=== PATIENT | female | born 1970 ===

== ENCOUNTER 2016-02-29 17:53 | Emergency (ER) | payer MEDICAID ==
[2016-02-29 19:00] LABS: PH,URINE 6.5 (5.0-8.0); SPECIFIC GRAVITY 1.015 (1.001-1.030); URINE BILIRUBIN NEGATIVE (NEGATIVE); URINE BLOOD 2+ (NEGATIVE); URINE GLUCOSE (UA) NEGATIVE (NEGATIVE); URINE LEUKOCYTE ESTERASE NEGATIVE (NEGATIVE); URINE NITRITE NEGATIVE (NEGATIVE); URINE PROTEIN NEGATIVE (NEGATIVE); URINE UROBILINOGEN NORMAL (0-1 mg/dl)
[2016-02-29 19:01] LABS: URINE APPEARANCE CLEAR; URINE COLOR LIGHT YELLOW
[2016-02-29 19:14] LABS: URINE BACTERIA FEW; URINE WBC 0-1 /hpf
[2016-02-29 20:53] LABS: BASO % 0.3 % (0.2-1.0); EOS % 0.5 % (0.9-2.9); HEMATOCRIT 34.7 % (37.0-47.0); HEMOGLOBIN 11.1 gm/l (12.0-16.0); IMM NEUT% 0.3 % (0-1); LYMPH # 1.7 (1.0-4.8); LYMPH % 27.6 % (15-45); MEAN CELL VOLUME 75.4 fl (81.0-99.0); MEAN CORPUSCULAR HEMOGLOBIN 24.1 pg (27.0-31.0); MONO # 0.6 (0.0-0.8); MONO % 8.7 % (4-12); NEUT % 62.6 % (43-75); PLATELET COUNT 366 K/mm3 (130-400); RED CELL DISTRIBUTION WIDTH 15.6 % (11.5-14.5)
--- NOTE | 2016-02-29 21:26 | US ---
Name: BASILIO HILL Exam: Obstetrical ultrasound Comparison: None Clinical history: Intrauterine gestation approximately 10 weeks 3 days. Brown spotting. Findings: Transabdominal and endovaginal imaging of the pelvis was performed. The bladder is empty. Uterus is normal size. A 7 mm anterior mid body uterine leiomyoma is suspected. There is a single living intrauterine gestation at 5 weeks 6 days by crown-rump length yielding an estimated date of delivery of 10/25/2016. Heart rate is 91 bpm pole and yolk sac are identified. Gestational fluid volume is grossly normal. There is no perigestational hemorrhage. Right ovary is 2.6 cm and left ovary is 1.7 cm in size and both contain normal blood flow. There are features compatible with a 1.7 cm hemorrhagic left ovarian cyst. There is no significant free fluid. Impression: Single living intrauterine gestation at 5 weeks 6 days yielding an estimated date of delivery of 10/25/2016.
== END 2016-02-29 21:54 | disposition home or self-care (01) ==
LOC: ED 17:53
DX: O20.0 Threatened abortion (principal); Z3A.01 Less than 8 weeks gestation of pregnancy

== ENCOUNTER 2016-03-05 21:03 | Emergency (ER) | payer MEDICAID ==
[2016-03-05 23:49] LABS: ABSOLUTE NEUTROPHIL COUNT 5.1 K/mm3 (1.8-7.7); BASO % 0.4 % (0.2-1.0); EOS # 0.1 (0.0-0.5); EOS % 0.9 % (0.9-2.9); HEMATOCRIT 38.2 % (37.0-47.0); HEMOGLOBIN 11.8 gm/l (12.0-16.0); IMM NEUT% 0.3 % (0-1); LYMPH # 1.6 (1.0-4.8); LYMPH % 21.1 % (15-45); MEAN CELL VOLUME 76.2 fl (81.0-99.0); MEAN CORPUSCULAR HEMOGLOBIN 23.6 pg (27.0-31.0); MEAN CORPUSCULAR HGB CONC 30.9 g/dl (33.0-37.0); MEAN PLATELET VOLUME 9.8 fl (7.4-10.4); MONO # 0.7 (0.0-0.8); MONO % 9.5 % (4-12); NEUT % 67.8 % (43-75); PLATELET COUNT 384 K/mm3 (130-400); RED CELL DISTRIBUTION WIDTH 16.4 % (11.5-14.5)
--- NOTE | 2016-03-06 07:44 | US ---
Exam: Complete obstetric ultrasound less than 14 weeks COMPARISON: 02/29/2016 INDICATION: Decreasing beta-hCGs, . FINDINGS: Transabdominal and transvaginal obstetric ultrasound less than 14 weeks was obtained. Unfortunately, the gestational sac seen on the prior exam is no longer identified. Mixed echogenic material is seen within the endometrial canal of the lower uterine segment most compatible with some blood products. There is a tiny anechoic fluid collection within the endometrium in the fundus measuring 3 x 3 x 7 mm. Right ovary measures 2.6 x 2.5 x 1.3 cm and left ovary measures 2.5 x 2.9 x 1.8 cm. There is no cystic or solid ovarian mass. Blood flow is present within the both ovaries. There is no significant free fluid in the cul-de-sac. IMPRESSION: Findings compatible with an interval miscarriage since the 02/29/2016 ultrasound. Tiny fluid collection is seen within the fundus which likely reflects blood products, however recommend ensuring beta hCG returns to 0 to exclude retained process conception. Preliminary report transmitted to the emergency department from [facility] at 0146 hours 03/06/2016.
== END 2016-03-06 02:22 | disposition home or self-care (01) ==
LOC: ED 21:03
DX: O03.9 Complete or unspecified spontaneous abortion without complication (principal); F32.9 Major depressive disorder, single episode, unspecified